=== PATIENT | male | born 1945 | race African-American/Black ===

== ENCOUNTER 2024-07-12 16:34 | Outpatient (CLI) | payer BC, SELFPAY | END 2024-07-12 16:35 | disposition home or self-care (01) | LOC: NFLDUCREF 16:34 | PROVIDERS: Visit Provider Nurse Practitioner | DX: L03.221 Cellulitis of neck (principal); B95.61 Methicillin susceptible Staphylococcus aureus infection as the cause of diseases classified elsewhere | CPT/HCPCS: 87070; 87186 ==